=== PATIENT | male | born 1985 | race Two or more races ===

== ENCOUNTER 2020-05-24 04:17 | Emergency (ER) | payer OTHER ==
[2020-05-24 05:12] LABS: ABSOLUTE BASOPHILS # (AUTO) 0.1 10^3/uL (0.0-0.2); ABSOLUTE EOSINOPHILS # (AUTO) 0.1 10^3/uL (0.0-0.6); ABSOLUTE LYMPHOCYTES (AUTO) 3.2 10^3/uL (0.5-4.7); ABSOLUTE MONOCYTES (AUTO) 0.8 10^3/uL (0.1-1.4); ABSOLUTE NEUT (AUTO) 4.8 10^3/uL (1.7-8.2); BASOPHILS % (AUTO) 0.9 % (0-2); EOSINOPHILS % (AUTO) 1.4 % (0-6); HEMATOCRIT 46.1 % (37.9-51.0); HEMOGLOBIN 15.9 g/dL (13.5-17.0); LYMPHOCYTES % (AUTO) 35.6 % (13-45); MEAN CORPUSCULAR HEMOGLOBIN 28.8 pg (27.0-33.4); MEAN CORPUSCULAR HGB CONC 34.4 g/dL (32.0-36.0); MEAN CORPUSCULAR VOLUME 84 fl (80-97); PLATELET COUNT 203 10^3/uL (150-450); RED BLOOD COUNT 5.52 10^6/uL (4.35-5.55); RED CELL DISTRIBUTION WIDTH 12.7 % (11.5-14.0); SEGMENTED NEUTROPHILS % (AUTO) 53.1 % (42-78); TOTAL CELLS COUNTED % (AUTO) 100 %; WHITE BLOOD COUNT 9.1 10^3/uL (4.0-10.5)
[2020-05-24 05:36] LABS: ALBUMIN 4.4 g/dL (3.5-5.0); ALKALINE PHOSPHATASE 95 U/L (38-126); ANION GAP 10 (5-19); ASPARTATE AMINO TRANSFERASE 44 U/L (17-59); BILIRUBIN,DIRECT 0.2 mg/dL (0.0-0.4); BILIRUBIN,TOTAL 0.6 mg/dL (0.2-1.3); BLOOD UREA NITROGEN 12 mg/dL (7-20); CALCIUM 9.5 mg/dL (8.4-10.2); CARBON DIOXIDE 25 mmol/L (22-30); CHLORIDE 103 mmol/L (98-107); CREATINE KINASE 104 U/L (55-170); GLUCOSE 109 mg/dL (75-110); TOTAL PROTEIN 7.5 g/dL (6.3-8.2)
[2020-05-24 05:45] LABS: CREATINE KINASE MB 0.52 ng/mL (<4.55)
[2020-05-24 05:47] LABS: TROPONIN I < 0.012 ng/mL
--- NOTE | 2020-05-24 05:56 | RADIOLOGY REPORT (SQ) ---
AP Portable chest: 05/24/2020 4:54 AM [employer] MANAGER History: 34-year old patient with chest pain, dyspnea. Comparison: None available Findings: The cardiomediastinal silhouette is enlarged. No pneumothorax is seen. There is a possible airspace opacity at the medial right lung base. No discrete pleural effusion is apparent. There is minimal elevation of the right hemidiaphragm. Impression: There is a possible airspace opacity at the medial right lung base. This may reflect developing infection or atelectasis.
[2020-05-24] MEDS ORDERED: KETOROLAC TROMETHAMINE INJ/PF 30 MG/1 ML SDV IV ONE (07:18)
[2020-05-24] MEDS ORDERED: NORMAL SALINE 1000 ML 1,000 ML IV ONE (07:18)
[2020-05-24] MEDS ORDERED: IPRATROPIUM/ALBUTEROL 0.5-2.5 MG/3 ML AMPUL NEB ONE (07:19)
--- NOTE | 2020-05-24 07:50 | ER Document Report ---
Entered by DENNIS HIGUERA SCRIBE 05/24/20 0713 Acting as scribe for:QUINCY SUNSHINE MD ED General - General Chief Complaint: Chest Pain Stated Complaint: CHEST PAIN Time Seen by Provider: 05/24/20 07:09 Mode of Arrival: Ambulatory Information source: Patient Notes: This 34 year old male patient with no significant past medical history presents to the ED today with complaints of left-sided chest pain that woke him up around 0330 this morning. Patient describes the pain as dull in nature that is worse with deep breaths. He reports associated wheezing, but denies cough. He states that he has never felt this type of pain before. Later, the patient mentions that he just finished a x7 day course of Doxycycline, prescribed on 05/16, for a chlamydia infection and notes that it still valerio when he urinates. When I talked to him about managing what appears to be reflux, and taking the doxycycline, I learned that he had not been given any instructions on how to take doxycycline and was taking it with Pepto-Bismol. It is likely his urethritis symptoms persist because the doxycycline was not being absorbed. - Related Data Allergies/Adverse Reactions: Penicillins Allergy (Verified 05/24/20 04:37) Past Medical History - Social History Smoking Status: Former Smoker - Quit smoking cigarettes x8-9 years ago, but smokes cigars Cigarette use (# per day): No Chew tobacco use (# tins/day): No Smoking Education Provided: No Frequency of alcohol use: Daily Drug Abuse: None Family History: Reviewed & Not Pertinent Patient has suicidal ideation: No Patient has homicidal ideation: No - Medical History Medical History: Negative Past Surgical History: Reports: Hx Tonsillectomy Review of Systems - Review of Systems Constitutional: No symptoms reported EENT: No symptoms reported Cardiovascular: See HPI, Chest pain Respiratory: See HPI, Wheezing. denies: Cough Gastrointestinal: No symptoms reported Genitourinary: See HPI, Burning Male Genitourinary: See HPI Musculoskeletal: No symptoms reported Skin: No symptoms reported Hematologic/Lymphatic: No symptoms reported Neurological/Psychological: No symptoms reported -: Yes All other systems reviewed and negative Physical Exam - Vital signs Vitals: Temp Pulse Resp BP Pulse Ox 97.9 F 71 16 145/95 H 98 05/24/20 04:30 05/24/20 04:30 05/24/20 04:30 05/24/20 04:30 05/24/20 04:30 - General General appearance: Alert In distress: None - HEENT Head: Normocephalic, Atraumatic Eyes: Normal Pupils: PERRL Neck: Normal, Supple - Respiratory Respiratory status: No respiratory distress Chest status: Nontender - Chest wall is nontender to palpation Breath sounds: Other - Wheezing and rales in the right lung base with deep breaths Chest palpation: Normal - Cardiovascular Rhythm: Regular Heart sounds: Normal auscultation Murmur: No Friction rub: No Gallop: None auscultated - Abdominal Inspection: Normal Distension: No distension Bowel sounds: Normal Tenderness: Tender - RUQ tenderness to palpation, Other - Abdomen soft Organomegaly: No organomegaly - Back Back: Normal, Nontender - Extremities General upper extremity: Normal inspection General lower extremity: Normal inspection. No: Edema - Neurological Neuro grossly intact: Yes Orientation: AAOx4 [place] Coma Scale Eye Opening: Spontaneous [place] Coma Scale Verbal: Oriented [place] Coma Scale Motor: Obeys Commands [place] Coma Scale Total: 15 - Psychological Associated symptoms: Normal affect, Normal mood - Skin Skin Temperature: Warm Skin Moisture: Dry Skin Color: Normal Course - Re-evaluation Re-evalutation: 05/24/20 09:43 He did notice that the slight wheeze he had seem to clear up with the nebulizer treatment. - Vital Signs Vital signs: Temp Pulse Resp BP Pulse Ox 97.9 F 71 16 145/95 H 98 05/24/20 04:30 05/24/20 04:30 05/24/20 04:30 05/24/20 04:30 05/24/20 04:30 - Laboratory Result Diagrams: 05/24/20 04:50 05/24/20 04:50 - Diagnostic Test Radiology reviewed: Image reviewed, Reports reviewed - Gallbladder ultrasound shows a 3 mm polyp in the gallbladder fundus, no other abnormality. Chest x-ray shows right medial lung base air space opacity, atelectasis versus infiltrate. - EKG Interpretation by Nd EKG shows normal: Sinus rhythm, [place], Intervals, QRS Complexes, ST-T Waves Rate: Normal - 76 Rhythm: NSR Discharge - Discharge Clinical Impression: Chest pain Qualifiers: Chest pain type: unspecified Qualified Code(s): R07.9 - Chest pain, unspecified GERD (gastroesophageal reflux disease) Qualifiers: Esophagitis presence: esophagitis presence not specified Qualified Code(s): K21.9 - Gastro-esophageal reflux disease without esophagitis Condition: Stable Disposition: HOME, SELF-CARE Additional Instructions: Chest Pain of Unclear Cause: The exact cause of your chest pain isn't clear. Fortunately, there is no evidence of a dangerous medical condition. Further testing may be required to find the source of the pain. Most often, we find that this pain is coming from the chest wall -- the muscles or rib joints in the chest. But chest pain can come from the lung and lung lining, the esophagus, the heart valves or heart lining, and even the stomach or gallbladder. Rest. Eat lightly until the pain is gone. We may prescribe medicine for pain and inflammation. You should call the physician immediately if the pain radiates to the shoulder, jaw or arms; if you start to run a fever or develop a cough; or if you develop shortness of breath, or other new or alarming symptoms. Reflux Disease (GERD): Gastro-Esophageal Reflux Disease (GERD) is caused by stomach acid refluxing back up into the esophagus. The valve at the end of the esophagus may be weak. This is common in persons with a hiatal hernia. GERD symptoms can include indigestion, chest pain, heartburn, or food "sticking." Certain foods, alcohol, and aspirin can make GERD worse. Treatment depends on the severity. Usually, antacids or acid-suppressing medicines are used. When the esophagus is acutely inflamed, the physician will often prescribe membrane-protective drugs such as Carafate. Some patients benefit from medication such as Reglan that tightens the valve at the top of the stomach. Avoid those foods that bring on your symptoms. For many people, these foods are coffee, chocolate, onions, garlic, and carbonated drinks. Don't use alcohol, aspirin, caffeine, or tobacco. Don't eat late at night -- within 4 hours of bedtime. Don't over-eat. If necessary, elevate the head of your bed about 4 inches so that stomach acid will not roll up into your esophagus. Call the doctor if you develop severe chest pain, inability to swallow fluids, fever, or worsening symptoms. Your history suggests that the chlamydia urethritis may not have completely resolved due to lack of instruction on how to properly take doxycycline. You did report the doxycycline seem to give you heartburn or indigestion. Your chest x-ray shows possible airspace disease on the right medial lung base region. You will be placed on a course of Zithromax which should be better tolerated and eradicate the chlamydia infection. Start taking the Zithromax tomorrow, you were given today's dose here in the emergency room. Follow the instructions for reflux. Take Prilosec OTC once daily. Follow-up with a local primary care provider if not improving. RETURN TO THE EMERGENCY ROOM IF ANY NEW OR WORSENING SYMPTOMS. Prescriptions: Azithromycin [Zithromax 250 mg Tablet] 250 mg PO DAILY #4 tablet I personally performed the services described in the documentation, reviewed and edited the documentation which was dictated to the scribe in my presence, and it accurately records my words and actions.
--- NOTE | 2020-05-24 08:53 | RADIOLOGY REPORT (SQ) ---
EXAM DESCRIPTION: U/S ABDOMEN LIMITED W/O DOP IMAGES COMPLETED DATE/TIME: 05/24/2020 7:58 am REASON FOR STUDY: RUQ abd pain COMPARISON: None. TECHNIQUE: Dynamic and static grayscale images acquired of the abdomen and recorded on PACS. Additio nal selected color Doppler and spectral images recorded. LIMITATIONS: Body habitus, bowel gas FINDINGS: PANCREAS: Midline pancreas unremarkable LIVER: No masses. Echotexture normal. LIVER VASCULATURE: Normal directional flow of the main portal vein and hepatic veins. GALLBLADDER: No stones. No gallbladder wall thickening or pericholecystic fluid. 3 mm gallbladder f undal polyp. ULTRASOUND-DETECTED BENSON'S SIGN: Negative. INTRAHEPATIC DUCTS AND COMMON DUCT: CBD and intrahepatic ducts normal caliber. No filling defects. D istal most common duct not seen due to duodenum gas INFERIOR VENA CAVA: Normal flow. AORTA: No aneurysm. RIGHT KIDNEY: Normal size. Normal echogenicity. No solid or suspicious masses. No hydronephrosis. No calcifications. PERITONEAL AND RIGHT PLEURAL SPACE: No ascites or effusions. OTHER: No other significant findings. IMPRESSION: 3 mm gallbladder fundus polyp. No gallbladder wall thickening or pericholecystic fluid. Negative sonographic Benson's sign TECHNICAL DOCUMENTATION: JOB ID: [id number] 2010 [employer]- All Rights Reserved Reading location - IP/workstation name: [id number]
--- NOTE | 2020-05-24 09:21 | EKG REPORT ---
SEVERITY:- BORDERLINE ECG - SINUS RHYTHM NONSPECIFIC ST-T CHANGES- INFERIOR LEADS : Confirmed by: Paddy Rinaldi MD 24-May-2020 09:20:21
[2020-05-24] MEDS ORDERED: AZITHROMYCIN 250 MG TABLET PO ONE (09:34)
[2020-05-24 10:10] VITALS: BP 128/94
[2020-05-24 10:42] LABS: CHLAM PCR NOT DETECTED (NOT DETECT)
== END 2020-05-24 10:10 | disposition home or self-care (01) ==
LOC: ER 04:17
DX: R07.9 Chest pain, unspecified (principal); K21.9 Gastro-esophageal reflux disease without esophagitis; K82.4 Cholesterolosis of gallbladder; R06.2 Wheezing; R10.811 Right upper quadrant abdominal tenderness; F17.290 Nicotine dependence, other tobacco product, uncomplicated; Z88.0 Allergy status to penicillin
CPT/HCPCS: 93005; 94640; 99285; 96361; 96374; 36415; 82553; 82550; 85025; 80053; 84484; 87491; 87591; 71045; 76705; 93010; J1885; J7030